=== PATIENT | female | born 1990 | race Caucasian/White ===

== ENCOUNTER 2017-10-10 12:18 | Emergency (ER) | payer MEDICAID ==
[2017-10-10 16:34] LABS: Bilirubin,Urine NEG (Negative); Blood,Urine NEG (Negative); Ketones,Urine NEG (Negative); Leukocyte Esterase,Urine MOD (Negative); Mucus,Urine FEW /HPF; Nitrite,Urine NEG (Negative); Protein,Urine <15 mg/dL mg/dL (Negative); Urobilinogen,Urine < 2.0 mg/dL (<2.0)
--- NOTE | 2017-10-10 17:06 | Emergency Department Report ---
ED Abdominal Pain HPI - General Chief Complaint: Urogenital-Female Stated Complaint: VAGINAL PAIN Time Seen by Provider: 10/10/17 17:03 Source: patient Mode of arrival: Ambulatory Limitations: No Limitations - History of Present Illness Initial Comments: The patient reports pelvic and back pain with vaginal discharge that started four days ago. LMP 09/17/17 MD Complaint: abdominal pain, other (back pain) Onset/Timin -: days(s) Location: suprapubic Radiation: back Severity: moderate Quality: cramping Consistency: constant Improves With: nothing Worsens With: movement Context: other (unknown) Associated Symptoms: dysuria, other (vaginal discharge). denies: nausea, diarrhea, fever, chills, constipation, hematemesis, hematochezia, melena, hematuria, anorexia, syncope - Related Data LMP Date: 09/17/17 LMP (females 10-50): 3 weeks Previous Rx's Medication Instructions Recorded Last Taken Type Nitrofurantoin Monohyd/M-Cryst 100 mg PO BID #14 capsule 10/10/17 Unknown Rx [Macrobid 100 mg Capsule] metroNIDAZOLE [Flagyl] 500 mg PO Q12HR #14 tab 10/10/17 Unknown Rx Allergies Allergy/AdvReac Type Severity Reaction Status Date / Time No Known Allergies Allergy Unverified 10/10/17 12:48 ED Review of Systems ROS: Stated complaint: VAGINAL PAIN Other details as noted in HPI Constitutional: denies: chills, diaphoresis, fever, malaise, weakness Respiratory: denies: cough, orthopnea, shortness of breath, SOB with exertion, SOB at rest, stridor, wheezing Cardiovascular: denies: chest pain, palpitations, dyspnea on exertion, orthopnea , edema, syncope, paroxysmal nocturnal dyspnea Gastrointestinal: abdominal pain. denies: nausea, vomiting, diarrhea, constipation, hematemesis, melena, hematochezia Genitourinary: dysuria, discharge (vaginal). denies: urgency, frequency, hematuria Musculoskeletal: back pain. denies: joint swelling, arthralgia, myalgia Skin: denies: rash, lesions, change in color, change in hair/nails, pruritus Neurological: denies: headache, weakness, numbness, paresthesias, confusion Psychiatric: denies: anxiety, depression Hematological/Lymphatic: denies: easy bleeding, easy bruising, swollen glands ED Past Medical Hx - Past Medical History Additional medical history: herpes - Social History Smoking Status: Current Every Day Smoker Substance Use Type: Marijuana - Medications Home Medications: Home Medications Medication Instructions Recorded Confirmed Last Taken Type Nitrofurantoin Monohyd/M-Cryst 100 mg PO BID #14 capsule 10/10/17 Unknown Rx [Macrobid 100 mg Capsule] metroNIDAZOLE [Flagyl] 500 mg PO Q12HR #14 tab 10/10/17 Unknown Rx ED Physical Exam - General Limitations: No Limitations General appearance: alert, in no apparent distress - Head Head exam: Present: atraumatic, normocephalic, normal inspection - Eye Eye exam: Present: normal appearance - Neck Neck exam: Present: normal inspection, full ROM. Absent: tenderness, meningismus, lymphadenopathy, thyromegaly - Respiratory Respiratory exam: Present: normal lung sounds bilaterally. Absent: respiratory distress, wheezes, rales, rhonchi, stridor, chest wall tenderness, accessory muscle use, decreased breath sounds, prolonged expiratory - Cardiovascular Cardiovascular Exam: Present: regular rate, normal rhythm, normal heart sounds. Absent: bradycardia, tachycardia, irregular rhythm, systolic murmur, diastolic murmur, rubs, gallop - GI/Abdominal GI/Abdominal exam: Present: soft, tenderness (RLQ, suprapubic and LLQ), normal bowel sounds. Absent: distended, guarding, rebound, rigid - External exam: Present: normal external exam. Absent: erythema, swelling, lesions, lacerations, ecchymosis, bleeding Speculum exam: Present: vaginal discharge (moderate creamy), cervical discharge (moderate creamy). Absent: erythema, vaginal bleeding, foreign body, tissue, laceration Bi-manual exam: Present: normal bi-manual exam. Absent: cervical motion tendernes, adnexal tenderness, adnexal mass, uterine enlargement, uterine tenderness - Extremities Exam Extremities exam: Present: normal inspection, full ROM, normal capillary refill. Absent: tenderness, pedal edema, joint swelling - Back Exam Back exam: Present: normal inspection, full ROM. Absent: tenderness, CVA tenderness (R), CVA tenderness (L), muscle spasm, paraspinal tenderness, vertebral tenderness - Neurological Exam Neurological exam: Present: alert, oriented X3, CN II-XII intact, normal gait, reflexes normal. Absent: motor sensory deficit - Psychiatric Psychiatric exam: Present: normal affect, normal mood. Absent: depressed, agitated - Skin Skin exam: Present: warm, dry, intact. Absent: normal color ED Course Vital Signs 10/10/17 12:45 Temperature 98.1 F Pulse Rate 66 Respiratory 18 Rate Blood Pressure 111/62 O2 Sat by Pulse 100 Oximetry - Reevaluation(s) Reevaluation #1: 10/10/17 18:53 pelvic exam, laboratory and radiology studies ordered ED Medical Decision Making - Lab Data Lab Results 10/10/17 10/10/17 10/10/17 Range/Units 17:18 17:30 Unknown HCG, Quant 248.2 H (0-4) mIU/mL Urine Color Yellow (Yellow) Urine Turbidity Clear (Clear) Urine pH 6.0 (5.0-7.0) Ur Specific [place] 1.021 (1.003-1.030) Urine Protein <15 mg/dl (Negative) mg/dL Urine Glucose (UA) Neg (Negative) mg/dL Urine Ketones Neg (Negative) mg/dL Urine Blood Neg (Negative) Urine Nitrite Neg (Negative) Urine Bilirubin Neg (Negative) Urine Urobilinogen < 2.0 (<2.0) mg/dL Ur Leukocyte Esterase Mod (Negative) Urine WBC (Auto) 118.0 H (0.0-6.0) /HPF Urine RBC (Auto) 5.0 (0.0-6.0) /HPF U Epithel Cells (Auto) 3.0 (0-13.0) /HPF Urine Mucus Few /HPF Urine HCG, Qual Positive A (Negative) Blood Type O NEGATIVE Microbiology 10/10/17 17:11 Cervix Wet Prep - Final Many polymorphonuclear cells seen > or = 20% Clue Cells Seen No Trichomonas No Yeast Seen Vital Signs 10/10/17 12:45 Temperature 98.1 F Pulse Rate 66 Respiratory 18 Rate Blood Pressure 111/62 O2 Sat by Pulse 100 Oximetry - Radiology Data Radiology results: image reviewed EXAM: US OB lt; = 14 WEEKS FETUS, TRANSABDOMINAL AND ENDOVAGINAL HISTORY: pelvic pain , history of 2 sets of twins TECHNIQUE: Pelvis ultrasound using 2 different techniques: TRANSABDOMINAL and TRANSVAGINAL PRIORS: None. FINDINGS: Uterus size and shape are normal, 8.9 x 4.7 x 5.0 cm. No evidence of uterine mass. The endometrium is homogenous. Endometrial thickness is 16.6mm. No evidence of gestational sac. There is nonspecific minimal cul-de-sac free fluid. Normal ovarian size. No convincing ultrasound evidence of solid ovarian mass. Ovarian/adnexal blood flow is present. The adnexa are normal. Right ovary: 2.2 x 1.8 x 1.4 cm Left ovary: 3.7 x 2.4 x 3.1 cm IMPRESSION: No sonographic evidence of acute pelvic pathology No ultrasound evidence of intrauterine or extrauterine Nonspecific minimal cul-de-sac free fluid may be physiologic. Follow-up as clinically indicated - Medical Decision Making During the course of ED, pelvic examination, laboratory and radiology studies were ordered. Patient's urine WBCs' were elevated and she had > 20% Clue cells on microscopic wet prep. The ultrasound showed no evidence of intrauterine or extrauterine . She was sent home with a prescription for Macrobid and Flagyl, instructed to follow up with [facility] for repeated beta HCG, she verbalized understanding - Differential Diagnosis UTI, Bacterial Vaginosis, Early Intrauterine Gestation Critical care attestation.: If time is entered above; I have spent that time in minutes in the direct care of this critically ill patient, excluding procedure time. ED Disposition Clinical Impression: Bacterial vaginosis Urinary tract infection Qualifiers: Urinary tract infection type: site unspecified Hematuria presence: without hematuria Qualified Code(s): N39.0 - Urinary tract infection, site not specified Qualifiers: Weeks of gestation: less than 8 weeks Qualified Code(s): Z3A.01 - Less than 8 weeks gestation of Disposition: DC- TO HOME OR SELFCARE Is pt being admited?: No Does the pt Need Aspirin: No Condition: Stable Instructions: (ED), Bacterial Vaginosis (ED), Urinary Tract Infection in Women (ED) Additional Instructions: Take medication as directed. No drinking or driving while taking medication, including five days after completion of antibiotics. Follow up with the selective referral given at discharge for repeated beta HCG. Return back to the ED for worsening symptoms or concerns Prescriptions: metroNIDAZOLE [Flagyl] 500 mg PO Q12HR #14 tab Nitrofurantoin Monohyd/M-Cryst [Macrobid 100 mg Capsule] 100 mg PO BID #14 capsule Referrals: DEYANIRA HERNANDEZ [Network Contract Manager] - 3-5 Days ISMAEL BROWER CNM [Advanced Practice Nurse] - 3-5 Days LEMUEL CRUZ CNM [Advanced Practice Nurse] - 3-5 Days HILARIO BUENO DO [Staff Physician] - 3-5 Days Forms: STI Treatment and Prevention Time of Disposition: 19:05
--- NOTE | 2017-10-10 18:45 | Ultrasound Report ---
FINAL REPORT EXAM: US OB TRANSABDOMINAL AND TRANSVAGINAL HISTORY: pelvic pain , history of 2 set of twins TECHNIQUE: Pelvis ultrasound using 2 different techniques: TRANSABDOMINAL and TRANSVAGINAL PRIORS: None. FINDINGS: Uterus size and shape are normal, 8.9 x 4.7 x 5.0 cm. No evidence of uterine mass. The endometrium is homogenous. Endometrial thickness is 16.6mm. No evidence of gestational sac. There is nonspecific minimal cul-de-sac free fluid. Normal ovarian size. No convincing ultrasound evidence of solid ovarian mass. Ovarian/adnexal blood flow is present. The adnexa are normal. Right ovary: 2.2 x 1.8 x 1.4 cm Left ovary: 3.7 x 2.4 x 3.1 cm IMPRESSION: No sonographic evidence of acute pelvic pathology No ultrasound evidence of intrauterine or extrauterine
--- NOTE | 2017-10-10 18:47 | Ultrasound Report ---
FINAL REPORT EXAM: US OB < = 14 WEEKS FETUS, TRANSABDOMINAL AND ENDOVAGINAL HISTORY: pelvic pain , history of 2 sets of twins TECHNIQUE: Pelvis ultrasound using 2 different techniques: TRANSABDOMINAL and TRANSVAGINAL PRIORS: None. FINDINGS: Uterus size and shape are normal, 8.9 x 4.7 x 5.0 cm. No evidence of uterine mass. The endometrium is homogenous. Endometrial thickness is 16.6mm. No evidence of gestational sac. There is nonspecific minimal cul-de-sac free fluid. Normal ovarian size. No convincing ultrasound evidence of solid ovarian mass. Ovarian/adnexal blood flow is present. The adnexa are normal. Right ovary: 2.2 x 1.8 x 1.4 cm Left ovary: 3.7 x 2.4 x 3.1 cm IMPRESSION: No sonographic evidence of acute pelvic pathology No ultrasound evidence of intrauterine or extrauterine Nonspecific minimal cul-de-sac free fluid may be physiologic. Follow-up as clinically indicated
[2017-10-10 19:18] VITALS: BP 119/83
== END 2017-10-10 19:18 | disposition home or self-care (01) ==
LOC: ED 12:18
DX: O23.41 Unspecified infection of urinary tract in pregnancy, first trimester (principal); N39.0 Urinary tract infection, site not specified; O23.591 Infection of other part of genital tract in pregnancy, first trimester; O99.331 Smoking (tobacco) complicating pregnancy, first trimester; N76.0 Acute vaginitis; F17.200 Nicotine dependence, unspecified, uncomplicated; F12.10 Cannabis abuse, uncomplicated; Z3A.01 Less than 8 weeks gestation of pregnancy
CPT/HCPCS: 36415; 76801; 76817; 81001; 81025; 84702; 86900; 86901; 87210; 87591